=== PATIENT | female | born 1950 | race Caucasian/White ===

== ENCOUNTER 2018-06-02 14:28 | Outpatient (REF) | payer MEDICARE, SELFPAY ==
[2018-06-05 13:01] LABS: Lyme Ab w Rflx to Lyme Confirm Negative
[2018-06-06 01:37] LABS: Anaplasma phagocytophilum Negative (Negative); B. miyamotoi PCR Negative (Negative); Babesia divergens/MO-1 Negative (Negative); Babesia duncani Negative (Negative); Babesia microti Negative (Negative); Ehrlichia chaffeensis Negative (Negative); Ehrlichia ewingii/canis Negative (Negative); Ehrlichia muris eauclairensis Negative (Negative)
== END 2018-06-02 14:48 ==
LOC: NCHCN 14:28
PROVIDERS: PCP Family Medicine; Visit Provider Family Medicine
DX: R53.83 Other fatigue (principal); Z79.1 Long term (current) use of non-steroidal anti-inflammatories (NSAID)
CPT/HCPCS: 86618; 87798

== ENCOUNTER 2018-07-06 12:53 | Outpatient (REF) | payer MEDICARE, SELFPAY ==
[2018-07-06 21:52] LABS: Hemoglobin A1C 5.9 % (4.5-6.2)
[2018-07-06 22:09] LABS: Cholesterol 195 mg/dL (50-200); HDL Cholesterol 53 mg/dL (40-60); LDL CHOLESTEROL 138 mg/dL (<100); Triglyceride 50 mg/dL (30-150)
[2018-07-06 22:13] LABS: Vitamin B12 > 2000 pg/mL (193-986)
== END 2018-07-06 13:13 ==
LOC: NCHCN 12:53
PROVIDERS: PCP Family Medicine; Visit Provider Family Medicine
DX: E78.5 Hyperlipidemia, unspecified (principal); E03.9 Hypothyroidism, unspecified; R73.09 Other abnormal glucose; E53.8 Deficiency of other specified B group vitamins
CPT/HCPCS: 80061; 83721; 82607; 83036; 84443

== ENCOUNTER 2020-10-01 19:35 | Outpatient (REF) | payer MEDICARE, SELFPAY ==
[2020-10-01 22:16] LABS: TSH 0.59 uIU/mL (0.36-3.74)
== END 2020-10-01 19:55 ==
LOC: NCHCN 19:35
PROVIDERS: PCP Family Medicine; Visit Provider Internal Medicine
DX: E03.9 Hypothyroidism, unspecified (principal)
CPT/HCPCS: 84443

== ENCOUNTER 2021-12-03 20:22 | Outpatient (REF) | payer MEDICARE, OTHER, SELFPAY ==
[2021-12-03 21:38] LABS: Hemoglobin A1C 5.7 % (<5.7)
[2021-12-03 22:06] LABS: Vitamin D 25 Total 81.2 ng/mL (30-100)
[2021-12-03 22:19] LABS: Vitamin B12 > 2000 pg/mL (193-986)
== END 2021-12-03 20:23 | disposition home or self-care (01) ==
LOC: NCHCN 20:22
PROVIDERS: PCP Family Medicine; Visit Provider Family Medicine
DX: R73.03 Prediabetes (principal); E55.9 Vitamin D deficiency, unspecified
CPT/HCPCS: 82306; 82607; 83036

== ENCOUNTER 2021-12-07 12:30 | Outpatient (REF) | payer MEDICARE, OTHER, SELFPAY ==
--- OUTSIDE RECORDS SUMMARY | 2021-12-07 12:33 | XMS_ITS ---
:1950 Author Care Team Providers Name Role Phone DANO MAHMOOD MD Primary Care Provider [phone] [facility] OTHER [phone] EMERSON SOLANO [facility] OTHER [phone] Allergies Code Code System Name Reaction Severity Status Onset 421722 RxNorm Bactrim ? ? Active ? Cat Dander ? ? Active ? Shellfish ? ? Active ? Derived Medications Name Status Start Date Stop Date ? ? aspirin Active ? Not available takes every other day B Complex-Vitamin B12 tablet Completed ? 03/2020 Take 1 tablet every day by oral route. EpiPen 2-Dennis 0.3 mg/0.3 mL injection, auto-injector Active ? Not available Take by injection route. Eye Vitamin and Minerals Active ? Not palak ilable once daily Finacea Active ? Not available apply as needed Imitrex 100 mg tablet Active ? Not availa ble Take 1 tablet as needed by oral route. magnesium gluconate 27 mg magnesium (500 mg) tablet Active ? Not available Take 1 tablet in evening. meloxicam Completed ? 04/27/2018 meloxicam 15 mg tablet Completed ? 8 metformin 500 mg tablet Completed ? 01/30/20 20 Take 1 tablet every day by oral route. olopatadine 0.6 % nasal spray Completed ? Hayes by intranasal route. Probiotic Completed ? 09/25/2019 Synthroid 100 mcg tablet Active ? Not palak ilable Take 1 tablet every day by oral route. vitamin [id number] B1 1,000 mcg-100 mg/mL injection solution Ac tive ? Not available Take every month by injection route. Vitamin D Active ? Not available Xanax Completed ? 09/25/2019 ?? Doesage Problems Name Status Onset Date Source ? Psychophysiologic Insomnia Active 04/27/2018 ? Polyp of Colon Active ? History Hypothyroidism Active ? History Vitamin D Deficiency Active ? History Obstructive Sleep Apnea Syndrome Active ? History Seasonal Allergic Rhinitis Active ? Histo ry Neck Pain Active ? History Plantar Fascial Fibromatosis Active ? His tory Eruption Unknown ? History Prediabetes Active ? History Procedures Date Name Performed by ? 09/19/1955 Tonsillectomy Information not avai lable Results Lab Results None recorded. Past Encounters 04/20/2021 Obstructive Sleep Apnea Syndrome; Psycho physiologic Insomnia Julio Plunkett MD, Board Certified Sleep Ph ysician: [address] [place] [address] [address], [place] [address], Ph. 01/05/2021 Obstructive Sleep Apnea Syndrome; Psycho physiologic Insomnia Julio Plunkett MD, Board Certified Sleep Ph ysician: [address] [place] [address] [address], [place] [address], Ph. 10/01/2020 Obstructive Sleep Apnea Syndrome; Fatigu e; Cramp in Lower Limb Associated with Sleep; Psychophysiologic Insomnia Julio Plunkett MD, Board Certified Sleep Ph ysician: [address] [place] [address], Ph. 07/08/2020 Obstructive Sleep Apnea Syndrome; Fatigu e; Cramp in Lower Limb Associated with Sleep; Psychophysiologic Insomnia Julio Plunkett MD, Board Certified Sleep Ph ysician: [address] [place] [address], Ph. Social History Tobacco Smoking Status Never Smoker Vaccine List Vaccine Type Tdap 07/20/2015 Plan of Care Patient Instructions oral appliance sleep study suggests the 19 blue band works well for side sleep and has some residual respiratory events related sleep arousals in supine position sleep. However if you plan to use t his as a alternative therapy during adeel el, I think it is better to use the gentler position for your jaw to adjust easily. continue cpap therapy in meantime at aut o cpap 8 to 12cm. fortunately your machine is NOT recalled. you can also add mouth tape (somnifix mouth strips or the like) to see if it helps with reducing mouth opening/dry mouth carie when sleeping on your back. Continue High absorption magnesium 100mg 2 tabs daily; with muscle cramps, can increase further up to 2 tabs twice daily (~100% APPLICATIONS INTERN) 6 month follow up (~ Oct 2021) april 2021 follow up Continue using your oral appliance, alternating with cpap to rest your jaw. When you do use cpap, the auto cpap 8 to 12cm setting, which in the past was working fine to treat your sleep apnea. You are also using breath rite strips. Search [employer] or the internet to see if you get audio files for deep breathing exercises, meditation, guided imagery, progressive muscle relaxation for sleep. search binaural beats for sleep. [employer] all ows you to listen to samples of the sean os before purchasing so it may be a helpful option. You think your sleep has been variable. Your back injury has disrupted the sleep. Yet you continue to work on a healthy lifestyle, with frequent exercise and eating unprocessed foods and avoiding sugar. Keep this up and your sleep will contin ue to benefit from this. Keep up the good work with your lifestyl e choices. You are really doing excellent with this and even got off your diabetes medications with improved A1C. Keep up the good work. [employer] is a helpful get for you. You will be enrolling in a [place] sponsored intervention on prediabetes. Continue w/ your Vitamin D supplement an d B12 shots. Continue taking Magnesium. Try the high absoprtion form to see if that may work better, 1 to 2 tabs daily. Let's check in about 6 months. Reminders Provider Appointments None recorded. ? ? Lab None recorded. ? ? Referral None recorded. ? ? Procedures None recorded. ? ? Surgeries None recorded. ? ? Imaging None recorded. ? ? Vitals 04/20/2021 01:00PM Office 30 Height Weight BMI Blood Pressure 161.29 cm 58.97 kg 22.7 kg/m2 140/69 mm[Hg] 01/05/2021 10:30AM Office 30 Height Weight BMI 161.29 cm 56.25 kg 21.6 kg/m2 10/01/2020 11:00AM Office 30 Height Weight BMI 161.29 cm 55.52 kg 21.3 kg/m2 07/08/2020 11:30AM Office 30 Height Weight BMI Blood Pressure 161.29 cm 58.97 kg 22.7 kg/m2 119/49 mm[Hg] 01/30/2020 12:00PM Office 30 Height Weight BMI 161.29 cm 63.05 kg 24.2 kg/m2 09/25/2019 03:30PM Office 30 Height Weight BMI Blood Pressure 161.29 cm 68.49 kg 26.3 kg/m2 121/67 mm[Hg] 03/26/2019 11:00AM Office 30 Height Weight BMI Blood Pressure 161.29 cm 67.13 kg 25.8 kg/m2 130/73 mm[Hg] 09/26/2018 10:30AM Office 15 Height Weight BMI Blood Pressure 161.29 cm 68.49 kg 26.3 kg/m2 128/68 mm[Hg] 06/21/2018 09:30AM Office 15 Height Weight BMI Blood Pressure 161.29 cm 66.22 kg 25.5 kg/m2 116/67 mm[Hg] 04/27/2018 10:00AM New Patient 30 Height Weight BMI Blood Pressure 161.29 cm 69.4 kg 26.7 kg/m2 124/59 mm[Hg] 02/09/2018 10:30AM Office 15 Height Weight BMI Blood Pressure 161.29 cm 69.4 kg 26.7 kg/m2 112/60 mm[Hg] 11/08/2017 Height Weight Blood Pressure 161.29 cm 69.57 kg 120/60 mm[Hg]
--- OUTSIDE RECORDS SUMMARY | 2021-12-07 12:33 | XMS_ITS | CCD ---
:1950 Author Care Team Providers Name Role Phone MD ELA Attending Physician Unavailable Vital Signs Unknown or Not Available. Allergies Unknown or Not Available. Procedures Unknown or Not Available. History of Immunizations Unknown or Not Available. Problems Unknown or Not Available. Results COMPREHENSIVE METABOLIC PANEL (CMP) - Co llect Date/Time: 03/19/2021 10:06 Test Name Code Test Result Test Units Test Ref Range GLUCOSE 2345-7 98 mg/dL L=70 H=11 6 BUN 3094-0 12 mg/dL L=6 H=25 CREATININE 2160-0 0.90 mg/dL L=0.51 H=0.95 SODIUM SERUM 2951-2 140 mmol/L L=136 H=14 5 POTASSIUM SERUM 2823-3 5.0 mmol/L L=3.4 H =5.2 CHLORIDE SERUM 2075-0 103 mmol/L L=96 H= 110 CARBON DIOXIDE (CO2) 2028-9 31 mmol/L L=22 H=34 ANION GAP 30812-1 5.7 mmol/L CALCIUM SERUM 58668-5 9.3 mg/dL L=8.2 H=10.2 BILIRUBIN TOTAL 1975-2 0.6 mg/dL L=0.0 H =1.3 ALK. PHOS. 6768-6 84 U/L L=46 H=11 6 SGOT (AST) 1920-8 21 U/L L=15 H=37 SGPT (ALT) 1742-6 35 U/L L=12 H=78 TOTAL PROTEIN 2885-2 7.8 gm/dL L=6.0 H=8 .0 ALBUMIN 1751-7 4.2 gm/dL L=3.4 H=5. 0 AGE 70 years eGFR (non-Afr.Amer.) 13488-2 62 mL/min eGFR (Afr-Georgian) 97640-0 75 mL/min HEMOGLOBIN A1C - Collect Date/Time: 09/2020 10:06 Test Name Code Test Result Test Units Test Ref Range Hgb A1c 4548-4 5.6 % L=3.8 H=5. 7 MEAN BLOOD GLUCOSE 82019-3 100 mg/dL Active Medications Unknown or Not Available. Medications Administered During Visit Unknown or Not Available. Encounters Encounter Diagnosis Diagnosis Code Start Date Prediabetes [id number] 03/19/2021 Social History Smoking Status Code Start Date End Date Never smoker [id number] Patient Decision Aids Unknown or Not Available. Discharge Instructions You were admitted to [facility] on 03/19/2021 09:59 with a principal diagnosis of Prediabetes You had the following tests done: COMPREHENSIVE METABOLIC PANEL (CMP) HEMOGLOBIN A1C You were discharged from [facility] on 03/19/2021 09:59 Should you have any questions prior to d ischarge, please contact a member of your healthcare team. If you have left the ho spital and have any questions, please contact your primary care physician. Chief Complaint and Reason For Visit Unknown or Not Available. Function Status Unknown or Not Available. Plan of Care Unknown or Not Available. Referral/Transition of Care Unknown or Not Available.
--- OUTSIDE RECORDS SUMMARY | 2021-12-07 12:33 | XMS_ITS ---
:1950 Author Care Team Providers Name Role Phone DR. DANO MAHMOOD Primary Care Provider [phone] DR. DANO MAHMOOD Referring Provider [phone] Allergies Code Code System Name Reaction Severity Status Onset 981467 RxNorm Bactrim ? ? Active ? 2670 RxNorm Codeine ? ? Active ? 4053 RxNorm Erythromycin Base ? ? Active ? Septra ? ? Active ? Shellfish Derived Anaphylaxis ? Active ? Medications Name Status Start Date Stop Date ? ? chlorpheniramine 4 mg tablet Active ? Not available Take 1 tablet every 4-6 hours by oral route as needed. cholecalciferol (vitamin D3) Active ? Not available Alternate 2,000 and 3,000 IU daily Finacea 15 % topical gel Active ? Not palak ilable APPLY A THIN LAYER TO THE AFFECTED AREA(S) BY TOPICAL ROUTE [place] magnesium Active ? Not available 500 mg magnesium oxide 500 mg tablet Completed ? Take 1 tablet every day by oral route. Pepcid Completed ? 05/12/2020 Taking 1 tablet everyday Pepcid AC 20 mg tablet Active ? Not avail able Take 1 tablet every day by oral route. Synthroid 100 mcg tablet Active ? Not palak ilable Take 1 tablet every day by oral route. vit D3-folic [id number] Completed 05/31/201805/21 Notes: Iontophoresis with dexame thasone UAD Problems Name Status Onset Date Source ? Mitral Valve Prolapse Active 05/31/2018 ? Rosacea Active 05/31/2018 ? Sleep Apnea Active 05/31/2018 ? Complication of Anesthesia Active 05/31/2018 ? Polyp of Colon Active ? ? Hypothyroidism Active ? ? Cobalamin Deficiency Active ? ? Vitamin D Deficiency Active ? ? Hyperlipidemia Active ? ? Overweight Active ? ? Obstructive Sleep Apnea Syndrome Active ? ? Gastroesophageal Reflux Disease without Active ? ? Esophagitis Seborrheic Dermatitis of Scalp Active ? ? Joint Pain Active ? ? Chronic Neck Pain Active ? ? Plantar Fasciitis Active ? ? Muscle Pain Active ? ? Osteopenia Active ? ? Fatigue Active ? ? Prediabetes Active ? ? Bilateral Thumb Pain Active ? ? Pain in Right Knee Active ? ? Procedures Date Name Performed by ? ? Egd Information not avai lable ? Colonoscopy Information not avai lable ? Breast Biopsy Information not avai lable Notes: right ? Neck Spine Disk Surgery Information not available ? Tonsillectomy Information not avai lable ? Eye Surgery Information not avai lable Notes: x2 as child ?right eye Results Lab Results Date Name Specimen Result Interpretation Description Value Range Status Address ? 06/11/2020 Urease, Normal Clotest negative negative [facility] Qualitative, Hosp ital Tissue Laboratory & Pathology: [address] [place] [address] 06/06/2020 SARS CoV 2 ? Upper nasopharynge ? [facility] RNA Respiratory al Hospi [facility] (COVID-19), Source Labor atory QL, supervisor customer services-PCR, & Respiratory Patho logy: Specimen [address] [place] [address] ? ? Normal Sars Cov-2 not detected not [facility] RNA detected [facility] (Covid-19) Labora tory & Pathology: [address] [place] [address] 08/14/2018 H Pylori Urea ? H. Pylori negative negativ e [facility] Breath Test, Breath Test [facility] Co2 Infrared Labo ratory & Pathology: [address] [place] [address] 06/14/2018 Urease, ABNORMAL Nilda Test markedly ? [facility] Qualitative, positive Ho spital Tissue Laboratory & Pathology: [address] [place] [address] Past Encounters None recorded. Social History Tobacco Smoking Status Never Smoker Vaccine List None recorded. Plan of Care Reminders Provider Appointments None ? ? recorded. Lab None ? ? recorded. Referral None ? ? recorded. Procedures None ? ? recorded. Surgeries None ? ? recorded. Imaging None ? ? recorded. Vitals Height Weight BMI Blood Pressure 161.29 cm 58.06 kg 22.3 kg/m2 110/74 mm[Hg]
--- OUTSIDE RECORDS SUMMARY | 2021-12-07 12:33 | XMS_ITS | CCD ---
:1950 Author Care Team Providers Name Role Phone NIDA Attending Physician Unavailable Vital Signs Unknown or Not Available. Allergies Unknown or Not Available. Procedures Unknown or Not Available. History of Immunizations Unknown or Not Available. Problems Unknown or Not Available. Results C REACTIVE PROTEIN HIGH SENSITIVITY - Co llect Date/Time: 04/20/2021 09:25 Test Name Code Test Result Test Units Test Ref Range CRP-HIGH SENS. 29752-4 1.73 mg/L L=0.00 H= 3.00 CRP-HIGH SENS 69585-7 0.17 mg/dL L=0.00 H=0 .30 COMPREHENSIVE METABOLIC PANEL (CMP) - Co llect Date/Time: 04/20/2021 09:25 Test Name Code Test Result Test Units Test Ref Range GLUCOSE 2345-7 97 mg/dL L=70 H=11 6 BUN 3094-0 16 mg/dL L=6 H=25 CREATININE 2160-0 0.85 mg/dL L=0.51 H=0.95 SODIUM SERUM 2951-2 140 mmol/L L=136 H=14 5 POTASSIUM SERUM 2823-3 4.1 mmol/L L=3.4 H =5.2 CHLORIDE SERUM 2075-0 104 mmol/L L=96 H= 110 CARBON DIOXIDE (CO2) 2028-9 31 mmol/L L=22 H=34 ANION GAP 75482-7 5.0 mmol/L CALCIUM SERUM 32661-2 8.7 mg/dL L=8.2 H=10.2 BILIRUBIN TOTAL 1975-2 0.5 mg/dL L=0.0 H =1.3 ALK. PHOS. 6768-6 74 U/L L=46 H=11 6 SGOT (AST) 1920-8 16 U/L L=15 H=37 SGPT (ALT) 1742-6 28 U/L L=12 H=78 TOTAL PROTEIN 2885-2 7.5 gm/dL L=6.0 H=8 .0 ALBUMIN 1751-7 4.0 gm/dL L=3.4 H=5. 0 AGE 70 years eGFR (non-Afr.Amer.) 91803-6 66 mL/min eGFR (Afr-Luxembourger) 07383-4 80 mL/min TSH THYROID STIMULATING HORMONE - [facility] Date/Time: 04/20/2021 09:25 Test Name Code Test Result Test Units Test Ref Range TSH 3014-8 0.695 uIU/mL L=0.360 H=3. 740 CBC W/ DIFFERENTIAL - Collect Date/Time: 04/20/2021 09:25 Test Name Code Test Result Test Units Test Ref Range WBC 6690-2 5.23 th/cmm L=5.00 H=10.00 NEUT % 66.0 % L=40.0 H=80.0 LYMPH % 23.5 % L=10.0 H=50.0 MONO % 35010-2 7.8 % L=2.0 H=12.0 EOS % 1.5 % L=0.0 H=8. 0 BASO % 1.0 % L=0.0 H=3. 0 IG % 2514-8 0.2 % L=0.0 H=1. 1 NRBC % 10364-9 0.0 % L=0.0 H=0. 0 NEUT abs count 751-8 3.5 th/cmm L=1.6 H= 8.4 LYMPH abs count 731-0 1.2 th/cmm L=1.5 H =4.0 MONO abs count 742-7 0.4 th/cmm L=0.2 H= 1.0 EOS abs count 711-2 0.1 th/cmm L=0.0 H=0 .5 BASO abs count 704-7 0.1 th/cmm L=0.0 H= 0.2 IG abs count 06891-4 0.0 th/cmm L=0.0 H=0. 1 NRBC abs count 88552-0 0.0 mil/cmm L=0.0 H= 0.0 RBC 789-8 4.69 mil/cmm L=3.90 H=5.40 HEMOGLOBIN 718-7 13.5 gm/dL L=12.0 H=16.0 HEMATOCRIT 4544-3 42 % L=37 H=47 MCV 787-2 89 fL L=82 H=92 MCH 785-6 28.8 pg L=27.0 H=31.0 MCHC 786-4 32.5 % L=32.0 H=36.0 RDW-SD 788-0 45.8 fL L=39.0 H=49.0 PLATELET COUNT 777-3 287 th/cmm L=150 H= 450 SED RATE - Collect Date/Time: 04/20/2021 09:25 Test Name Code Test Result Test Units Test Ref Range SED. RATE 4537-7 1 mm/hr L=0 H=30 Active Medications Unknown or Not Available. Medications Administered During Visit Unknown or Not Available. Encounters Encounter Diagnosis Diagnosis Code Start Date Other fatigue [id number] 04/20/2021 Social History Smoking Status Code Start Date End Date Never smoker [id number] Patient Decision Aids Unknown or Not Available. Discharge Instructions You were admitted to [facility] on 04/20/2021 08:39 with a principal diagnosis of Other fatigue You had the following tests done: C REACTIVE PROTEIN HIGH SENSITIVITY CBC W/ DIFFERENTIAL COMPREHENSIVE METABOLIC PANEL (CMP) SED RATE TSH THYROID S TIMULATING HORMONE You were discharged from [facility] on 04/20/2021 08:39 Should you have any questions prior to [...]
[2021-12-09 14:17] LABS: Helicobacter pylori Ag, Feces Negative (Negative)
== END 2021-12-07 12:31 | disposition home or self-care (01) ==
LOC: NCHCN 12:30
PROVIDERS: PCP Family Medicine; Visit Provider Family Medicine
DX: K21.9 Gastro-esophageal reflux disease without esophagitis (principal); R10.9 Unspecified abdominal pain
CPT/HCPCS: 87338; 83630

== ENCOUNTER 2023-01-07 00:52 | Outpatient (CLI) | payer MEDICARE, SELFPAY ==
--- NOTE | 2023-01-07 | DI.RAD_ITS ---
Exam(s) XR KNEE LT 3V AP,LAT,PAYTON EXAM: XR KNEE LT 3V AP,LAT,PAYTON CLINICAL HISTORY: ILIOTIBIAL BAND FRICTION LT KNEE M76.32 OSTEOARTHRITIS LEFT KNEE M17.9. TECHNIQUE: 2D digital imaging was performed. COMPARISON: No exams were available for comparison FINDINGS: 3 views No evidence of acute fracture but there is a joint effusion noted which may signify an internal deran gement. Mild degenerative changes noted in all 3 compartments. No prominent joint space narrowing. No osteo phytes. No osteochondral defects. No osseous lesions. IMPRESSION: Mild degenerative tricompartmental changes. Joint effusion noted. DATA REPOSITORY: RADIATION DOSE DELIVERED:
--- NOTE | 2023-01-07 | DI.RAD_ITS ---
Exam(s) XR HIP LT COMPLETE AP PELVIS EXAM: XR HIP LT COMPLETE AP PELVIS CLINICAL HISTORY: LEFT HIP PAIN M25.552. TECHNIQUE: 2D digital imaging was performed. COMPARISON: No exams were available for comparison FINDINGS: 3 views No evidence of hip fractures. No hip joint space narrowing. Additional images of the left hip revea l no osteophytes nor bony excrescence. Incidentally noted is a deformity of the lateral aspect of the left iliac crest which may be developm ental or possibly related to donor site. Sacroiliac joints appear unremarkable. IMPRESSION: As above. DATA REPOSITORY: RADIATION DOSE DELIVERED:
== END 2023-01-07 01:12 ==
LOC: DI 00:53
PROVIDERS: PCP Family Medicine; Visit Provider Internal Medicine
DX: M25.552 Pain in left hip (principal)
CPT/HCPCS: 73562; 73502

== ENCOUNTER → 2023-07-18 12:53 | Outpatient (BNVA) | payer MEDICARE, SELFPAY | PROVIDERS: PCP Family Medicine; Referring Provider Family Medicine; Visit Provider Student in an Organized Health Care Education/Training Program | DX: M17.12 Unilateral primary osteoarthritis, left knee (principal) | CPT/HCPCS: 99203 ==

== ENCOUNTER 2023-07-18 15:44 | Outpatient (REF) | payer MEDICARE, SELFPAY ==
--- NOTE | 2023-07-18 12:00 | SKI_PTH ---
PATIENT: Stella Iglesias [id number] AGE/SX: 72/F ROOM: RE07/18/[address]: Bethany Palmer : 1950 BED: DIS: 07/18/2023 SPEC #: [id number] RECD: 07/18/23 17:48 STATUS: FREDRICK WEEKS #: [id number] LAKHWINDER: 07/18/23 12:[address]: Bethany Palmer DEPT: Surgical Specimen RECD BY: Rachell Bartlett Tissues: 1 - SKIN BIOPSY(SHAVE/PUNCH) Procedures: SKIN LEVEL 4 Comments: [id number]
[2023-07-18 16:58] LABS: Anion Gap 9.7 mmol/L (3-11); BUN 11 mg/dL (7-18); CO2 27.3 mmol/L (21.0-32.0); CREATININE 0.9 mg/dL (0.55-1.02); Calcium 9.6 mg/dL (8.5-10.1); Chloride 102 mmol/L (98-107); Estimated GFR 67.92 (mL/min/1.73m2); Glucose 106 mg/dL (74-106); Potassium 4.9 mmol/L (3.5-5.1); Sodium 139 mmol/L (136-145)
[2023-07-18 16:59] LABS: Vitamin D 25 Total 60.1 ng/mL (30-100)
== END 2023-07-18 15:45 | disposition home or self-care (01) ==
LOC: NCHCN 15:44
PROVIDERS: PCP Family Medicine; Visit Provider Family Medicine
DX: E55.9 Vitamin D deficiency, unspecified (principal); E87.1 Hypo-osmolality and hyponatremia; L82.1 Other seborrheic keratosis
CPT/HCPCS: 80048; 82306; 88305

== ENCOUNTER 2024-03-15 02:59 | Outpatient (CLI) | payer MEDICARE, SELFPAY ==
--- NOTE | 2024-03-19 10:22 | W.NUTRFU ---
Date of service: 03/15/24 Time of Service: 13:00 Nutrition Note NOTE: Pinky comes in for a nutrition visit - referred for MNT for HLD and also has weight management as a goal. Her weight at her visit with PCP was 146lbs. She reports current weight of 142lbs and has a goal weight of 130-135 set. Gave example of breakfast she has started eating of oats and quinoa soaked overnight in almond milk and adds walnuts, banana, berries. Another breakfast option might be 1 egg with spinach, toast with butter. I applauded any changes she has made to help with her weight mgt goals and supported a plant-based, minimally-processed diet with lots of traditional plant foods. We discussed goals for lowering TGL's and LDL cholesterol by choosing foods more commonly known to lower these and also avoiding foods that will impact negatively. Foods to eat more often (3-7 times per week): Beans, beets, berries, greens, oats, nuts/seeds, garlic/onion family, non-starchy veggies. We also discussed getting to know her added sugar intake and making adjustments so it is <30g per day. We reviewed some sample menus for meal set-ups and went over snacks as a way to get little more fiber and protein in the diet with smart pairings of food like nuts with carrots and hummus. Sent Pinky an email summary of what we discussed with some supporting resources. She will be in contact if she desires follow up or needs more guidance with menu planning. Time Spent in Nutritional Counseling and Treatment: 30
--- NOTE | 2024-04-27 11:20 | W.NUTRFU ---
Date of service: 04/27/24 Time of Service: 10:00 Nutrition Note NOTE: Pinky in for follow up on diet changes towards her goal to improve lipid profile with hx of HLD. She feels like she is good on breakfast meal which is consistently oats and quinoa with walnuts blueberries and soy milk. She feels life often gets in the way of her food choices and makes it hard to plan. She ate some wonderful brown bread with coffee for some time after getting a real high quality loaf from [employer] and also relates splurges on things like maple kettle corn. She also relates having friends over for dinner in a few nights and not sure what to make so they are happy and she is not eating things she Shouldn't. She is interested in delivery meal plans or types that send you the ingredients with recipes to be made at home as she feels this will help with decision making - shared a few that might be congruent with her goals. Pinky seems to be doing well most days on her added sugar intake. Reports small weight loss since last appt but trying not to focus on this as only goal. I reviewed some easier lunches and snack ideas that are just whole foods that are paired up together to make a meal - finger food veggies and dip, some triscuit crackers and and small handful of raw nuts/pumkin seeds for example. Pinky will try to keep working on menus and being proactive with eating but knows life will make it difficult on some days and try to take it with a grain of salt - just don't let one meal or snack that isn't up to par ruin the next - get back into proactive mode as soon as elise. Will remain available for follow up. Time Spent in Nutritional Counseling and Treatment: 30 min
== END 2024-03-15 03:00 | disposition home or self-care (01) ==
LOC: DS 03:00
PROVIDERS: PCP Family Medicine; Visit Provider Dietitian, Registered
DX: E78.5 Hyperlipidemia, unspecified (principal); E66.3 Overweight; Z71.3 Dietary counseling and surveillance
CPT/HCPCS: 00123; 97802

== ENCOUNTER 2024-06-05 20:21 | Outpatient (REF) | payer MEDICARE, SELFPAY ==
[2024-06-05 21:30] LABS: ESR 8 mm/hr (0-30)
[2024-06-05 21:47] LABS: Iron 27 ug/dL (50-170); Total Iron Binding Capacity 321 ug/dL (250-450)
[2024-06-05 22:03] LABS: Ferritin 135 ng/mL (8-252); TSH (W/Ref FT4) 1.85 uIU/mL (0.36-3.74)
[2024-06-05 22:16] LABS: Hemoglobin A1C 5.8 % (<5.7)
== END 2024-06-05 20:22 | disposition home or self-care (01) ==
LOC: NCHCN 20:21
PROVIDERS: PCP Family Medicine; Visit Provider Family Medicine
DX: L29.3 Anogenital pruritus, unspecified (principal); R73.03 Prediabetes; E03.9 Hypothyroidism, unspecified
CPT/HCPCS: 85652; 82728; 83036; 83540; 83550; 84443; 87480; 87510; 87660

== ENCOUNTER 2024-11-23 09:36 | Observation (INO) | payer MEDICARE, SELFPAY ==
[2024-11-23] VITALS (37 sets, daily range): BP systolic 127–202; BP diastolic 54–81; PULSE 58–76; RESP 10–24; TEMP 36.6–37.2; O2SAT 94–100
--- NOTE | 2024-11-23 | DI.MRI_ITS ---
Exam(s) MR BRAIN WO EXAM: MR BRAIN WO CLINICAL HISTORY: stroke TECHNIQUE: Multiplanar multisequence MRI of the brain was performed. COMPARISON: CT CT BRAIN NECK CTA from 11/23/2024 FINDINGS: CEREBRAL PARENCHYMA: There is no evidence of intracranial hemorrhage, mass effect, or shift of midline structures. There are no extra-axial fluid collections. Ventricles are not enlarged or shifted. There is no significant focal signal abnormality in the cerebellar hemispheres nor within the lexie, m idbrain, and thalami. There are multiple bilateral small foci periventricular white matter signal abnormality. Largest of these is in the left parietal lobe and measures 1.3 x 0.9 cm, not associated with hemorrhage, surroun ding edema, not associated with restricted diffusion at this level nor elsewhere in the brain. There is no significant focal signal abnormality evident on diffusion imaging to suggest acute ischem ic event. PITUITARY GLAND: No mass nor parasellar abnormality. No obvious abnormality in the cavernous sinuses. FLOW VOIDS: The expected flow void are noted. No evidence of obvious aneurysm nor obvious vascular ma lformation. PARANASAL SINUSES: The visualized paranasal sinuses appear unremarkable. No obvious finding ORBITS: No obvious findings. IMPRESSION: There are few FLAIR bright foci of periventricular signal abnormality, the largest being in the left parietal lobe and measuring 13 x 9 mm, having nonspecific appearance. There is no associated hemorrh age, surrounding edema, nor restricted diffusion at this level (nor elsewhere in the brain). No evid ence of acute infarct, as per request. Report called by myself to ER provider 11/23/2024 at 1:30 p.m. DATA REPOSITORY:
--- NOTE | 2024-11-23 09:30 | RT.EKG_ITS ---
APPROVED REPORT Exam: Resting ECG Reason for Exam: Headache, slurred speech Patient Location: E HR:69 bpm ECG Measurements Heart Rate 69 AXIS HI 139 P 61 QRSd 97 QRS 32 QT 388 T 50 QTc 416 Conclusion Sinus rhythm...normal P axis, V-rate 60- 99 I have reviewed and interpreted ECG and agree with software generated interpretation.
--- NOTE | 2024-11-23 09:45 | DI.CT_ITS ---
Exam(s) CT HEAD WO EXAM: CT HEAD WO CLINICAL HISTORY: code stroke. TECHNIQUE: Imaging Protocol: Axial computed tomography images with coronal and sagittal reformatted images were created and reviewed COMPARISON: No exams were available for comparison FINDINGS: There are no skull fractures. There is no fluid in the visualized paranasal sinuses. There is no evidence of intracranial hemorrhage, mass effect, or shift of midline structures. There are no extra-axial fluid collections. The ventricles are not enlarged or shifted and there is no blo od within the ventricular system nor within the basal cisterns. IMPRESSION: No acute intracranial findings on this noninfused CT scan of the brain. Called by myself to ER 11/23/2024 at 10:04. am RADIATION DOSE DELIVERED: 901.17mGy.cm Total DLP DATA REPOSITORY: All CT scans at this facility are submitted to the National Radiology Data Registry (NRDR) Dose Index Registry (DIR) with the [employer] (ACR). RADIATION OPTIMIZATION: All CT scans at this facility use at least one of these dose optimization te chniques: automated exposure control; mA and/or kV adjustment per patient size (includes targeted exa ms where dose is matched to clinical indication); or iterative reconstruction.
[2024-11-23 09:59] LABS: Abs Immature Grans 0.03 10^3/uL (0.0-0.06); Absolute Basophil Count 0.05 10^3/uL (0.0-0.2); Absolute Eosinophil Count 0.04 10^3/uL (0.0-0.7); Absolute Lymphocyte Count 1.11 10^3/uL (1.2-3.4); Absolute Monocyte Count 0.42 10^3/uL (0.1-0.8); Absolute Neutrophil Count 3.81 10^3/uL (1.2-6.7); Basophils % 0.9 %; Eosinophils % 0.7 %; HCT 40.6 % (36.0-46.0); HGB 13.3 g/dL (11.2-15.7); Immature Grans % 0.5 %; Lymphocytes % 20.3 %; MCH 28.3 pg (27.0-33.0); MCHC 32.8 % (32.0-36.0); MCV 86 fL (80-95); MPV 10.3 fL (8.0-11.0); Monocytes % 7.7 %; Neutrophils % 69.9 %; Platelet Count 276 10^3/uL (130-400); RDW 14.7 % (11.7-14.6); RDW-SD 46.8 fL; WBC 5.46 10^3/uL (4.4-10.8)
[2024-11-23 10:13] LABS: PTT Activated 27.3 sec (20.6-30.2); Prothrombin Time 10.3 sec (9.1-11.1)
--- NOTE | 2024-11-23 10:15 | DI.CT_ITS ---
Exam(s) CT BRAIN NECK CTA EXAM: CT BRAIN NECK CTA CLINICAL HISTORY: speech difficulty 0800. TECHNIQUE: Imaging Protocol: Axial CT angiography was performed with multi-slice acquisition and mu lti-planar and/or 3D reconstructions. CONTRAST MATERIAL: Intravenous: Omnipaque 350 Contrast volume:70 mL COMPARISON: CT CT HEAD WO from 11/23/2024 FINDINGS: CTA Neck W: Aortic arch anatomy: The aortic arch anatomy is conventional and there is no significant stenosis at the origin of the great vessels off of the aortic arch. No intimal flap evident. Anterior circulation: Both common carotid arteries ascend with normal luminal diameters. There is no significant plaque at the level the carotid bifurcations and proximal internal carotid ar teries. No stenosis at these levels. The internal carotid arteries in both sides the upper neck are also patent as well as within the skull base-carotid canals. Posterior circulation: Both vertebral arteries originate in conventional fashion off of the subclavian arteries and there is no obvious stenosis at the origin of the vertebral arteries. Both vertebral arteries exhibit normal luminal diameters within the foramen transversarium. Both vertebral arteries contribute to the formation of the basilar artery at the skull base. CTA Brain W: Anterior circulation: Both internal carotid arteries are patent in the skull base-carotid canals as well as within the cave rnous sinuses. The supraclinoid aspects of the ICAs are patent. Both A1 segments are patent as are the anterior cer ebral arteries and there is no evidence of aneurysm at the level of the anterior communicating artery . Both middle cerebral arteries are patent with no evidence of significant stenosis nor intraluminal th rombus. There also no aneurysms of these vessels. Posterior circulation: The basilar artery ascends in the midline. Distally it gives off patent bilateral superior cerebella r arteries. Above this level the basilar artery terminates as patent bilateral posterior cerebral arteries. Post erior cerebral artery appears unremarkable. There is splitting of the P1 segment of the right cruise consultant ior cerebral artery starting 4 mm distal to the origin of this vessel. This is probably developmenta l. There is no evidence of aneurysm at the tip of the basilar artery nor elsewhere in the [id number] is. CT BRAIN: There is no evidence of intracranial hemorrhage, mass effect, or shift of midline structures. There are no extra-axial fluid collections. Ventricles are not enlarged or shifted. There are no ring enh ancing lesions in the brain and no abnormal meningeal enhancement. IMPRESSION: 1. Patent carotid arteries in the neck. No hemodynamically significant stenosis. No dissection 2. Patent vertebral arteries. No significant stenosis. No dissection. 3. Patent intracranial arteries. 4. No acute intracranial findings. No ring enhancing lesions in the brain. Abnormal meningeal enhan cement. Recommend follow-up MRI with diffusion imaging if clinically indicated. Report called to ER provider 11/23/2024 at 11:42 a.m. RADIATION DOSE DELIVERED: 1,283.82mGy.cm Total DLP DATA REPOSITORY: All CT scans at this facility are submitted to the National Radiology Data Registry (NRDR) Dose Index Registry (DIR) with the [employer] (ACR). RADIATION OPTIMIZATION: All CT scans at this facility use at least one of these dose optimization te chniques: automated exposure control; mA and/or kV adjustment per patient size (includes targeted exa ms where dose is matched to clinical indication); or iterative reconstruction.
[2024-11-23 10:22] LABS: ALT 26 U/L (14-59); AST 18 U/L (15-37); Albumin 3.9 g/dL (3.4-5.0); Alkaline Phosphatase 93 U/L (46-116); Anion Gap 5.5 mmol/L (3-11); BUN 15 mg/dL (7-18); Bilirubin, Total 0.4 mg/dL (0.2-1.0); CO2 29.5 mmol/L (21.0-32.0); CREATININE 0.9 mg/dL (0.55-1.02); Chloride 105 mmol/L (98-107); Estimated GFR 67.08 (mL/min/1.73m2); Glucose 100 mg/dL (74-106); Potassium 4.1 mmol/L (3.5-5.1); Sodium 140 mmol/L (136-145); Total Protein 7.2 g/dL (6.4-8.2); Troponin I 4 ng/L (<or=51)
[2024-11-23] MEDS: diphenhydrAMINE 50 MG/ML VIAL 25 MG IVP (10:37)
[2024-11-23] MEDS: methylPREDNISolone SUCC 125 MG VIAL IVP (10:38)
[2024-11-23] MEDS: Normal Saline - Diluent 50 ML VIAL IJ (11:09)
[2024-11-23] MEDS: Omnipaque 350 MG/ML 100 ML BTL IJ (11:11)
[2024-11-23 11:18] LABS: Troponin I 4 ng/L (<or=51)
--- NOTE | 2024-11-23 12:14 | W.ED.GENAD ---
Discharge Plan Disposition Patient Disposition: Admit to [facility] Condition: Stable Discharge Details Chief Complaint: CVA/TIA Clinical Impression: Transient ischemic attack Admit Date/Time: 11/23/24 12:21 Admit Provider: Darrick Reynoso Attending Provider: Darrick Reynoso Primary Care Provider: Bethany Palmer ED Provider: Sotero Sims HPI General Date/Time Provider Initiated Documentation: 11/23/24 09:44. HPI Narrative: 74 year-old female presents to ED today by POV/ambulating with her friend with a chief complaint of onset of word-finding difficulty around 0800 today, with a headache, both have resolved. Quality described as just was difficult to find the words, no radiation to slurred speech, motor difficulty, numbness, tingling, endorses vague visual changes but cannot characterize. Severity is described as mild. Palliating factors include nothing specific attempted. Provoking factors include nothing specific. Events leading up to the incident/Associated Symptoms: Patient states she has had one episode of similar onset in the remote past. Patient not anticoagulated. Related Data Home Medications ?Medication ?Instructions ?Recorded ?Confirmed cholecalciferol (vitamin D3) 50 50 mcg PO DAILY 07/18/23 11/23/24 mcg (2,000 unit) capsule epinephrine 0.3 mg/0.3 mL 0.3 mg IM ONCE 07/18/23 11/23/24 injection, auto-injector levothyroxine 100 mcg tablet 100 mcg PO DAILY 07/18/23 11/23/24 (Synthroid) magnesium gluconate 27 mg 27 mg PO DAILY 07/18/23 11/23/24 magnesium (500 mg) tablet sumatriptan succinate 50 mg tablet See Rx Instructions PO .COMPLEX 07/18/23 11/23/24 azelaic acid 15 % topical foam 1 applic topical BID 01/10/24 11/23/24 (Finacea) azelastine 137 mcg (0.1 %) nasal 2 spray intranasal BID 01/10/24 11/23/24 spray magnesium gluconate 27.5 mg 27.5 mg PO DAILY 01/10/24 11/23/24 magnesium (500 mg) tablet methocarbamol 750 mg tablet 750 - 1,500 mg PO Q8H 01/10/24 11/23/24 omeprazole 40 mg capsule,delayed 40 mg PO DAILY 01/10/24 11/23/24 release acetaminophen 500 mg capsule 500 mg PO Q6H PRN 01/25/24 11/23/24 Allergies Allergy/AdvReac Type Severity Reaction Status Date / Time shellfish derived Allergy Unknown Anaphylaxis Unverified 01/25/24 17:03 sulfamethoxazole (From Allergy Anaphylaxis Verified 01/25/24 17:03 Bactrim) trimethoprim (From Bactrim) Allergy Anaphylaxis Unverified 01/25/24 17:03 General Stated Complaint: CVA/TIA DAYAN: 2 Review of Systems All systems reviewed & are unremarkable except as noted in HPI and below Exam Narrative Exam Narrative: GENERAL APPEARANCE: Well-nourished, non-toxic, awake and alert, atraumatic, no acute distress. SKIN: Warm, pink, dry, intact, without rashes/lesions/ulcerations. HEAD: Normocephalic, atraumatic, normal hair distribution for gender/age. EYES: Normal conjunctiva, no exudates on lids/lashes. ENT: Nares patent, no circumoral cyanosis, no facial swelling NECK: Supple, trachea midline, painless cervical ROM. LUNGS/CHEST: Lungs CTA bilaterally, non-labored respirations, normal A/P diameter, symmetrical expansion, no chest wall deformity HEART (CV/PV): Regular rate and rhythm without murmur, no peripheral edema, no JVD. ABDOMEN: Soft, non-distended, no guarding. MSK: Normal ROM, no swelling/deformity to bilateral UEs or LEs, moving all extremities without weakness, no cyanosis, spine midline without tenderness, normal curvature. NEURO: Mental Status AAOx4 - alert to person, place, time, events No facial droop, no forehead involvement, no dysmetria with cerebellar testing in upper or lower extremities Motor: No focal weakness - strength 5/5 in bilateral UEs and LEs, proximal and distal, symmetric. Sensory: sensation intact to light touch globally. Gait normal: patient ambulated without ataxia into ED room. NIH 0 PSYCH: euthymic, cooperative, pleasant, appropriate speech Course Vital Signs Vital signs: Vital Signs Temperature 36.8 C 11/23/24 09:41 Pulse 71 11/23/24 09:41 Respiratory Rate 16 11/23/24 09:41 Blood Pressure 188/59 H 11/23/24 09:41 Pulse Oximetry 98 11/23/24 09:41 Temperature 36.8 C 11/23/24 09:41 Temperature Source Temporal Artery Scan 11/23/24 09:41 Pulse 63 11/23/24 11:37 Pulse 63 11/23/24 11:37 Respiratory Rate 19 11/23/24 11:37 Respiratory Effort Normal 11/23/24 10:55 Respiratory Depth Normal 11/23/24 10:55 Respiratory Pattern Normal 11/23/24 10:55 Blood Pressure 194/81 H 11/23/24 11:37 Blood Pressure Mean 123 11/23/24 11:37 Blood Pressure Position Sitting 11/23/24 09:41 Pulse Oximetry 99 11/23/24 11:30 Oxygen Delivery Method Room Air 11/23/24 09:41 Oxygen Flow Rate 0 11/23/24 09:41 Pain Level 4 11/23/24 09:41 Lab/Test Results Lab/Test Results: Laboratory Tests Range/Units 11/23/24 11/23/24 09:54 10:51 WBC (4.4-10.8) 10^3/uL 5.46 RBC (3.93-5.22) 10^6/uL 4.70 Hgb (11.2-15.7) g/dL 13.3 Hct (36.0-46.0) % 40.6 MCV (80-95) fL 86 MCH (27.0-33.0) pg 28.3 MCHC (32.0-36.0) % 32.8 RDW (11.7-14.6) % 14.7 H Plt Count (130-400) 10^3/uL 276 MPV (8.0-11.0) fL 10.3 Immature Gran % % 0.5 Neutrophils % % 69.9 Lymphocytes % % 20.3 Monocytes % % 7.7 Eosinophils % % 0.7 Basophils % % 0.9 Nucleated RBC % (0.0-0.3) % 0.0 Absolute Neutrophils (1.2-6.7) 10^3/uL 3.81 Absolute Lymphocytes (1.2-3.4) 10^3/uL 1.11 L Absolute Monocytes (0.1-0.8) 10^3/uL 0.42 Absolute Eosinophils (0.0-0.7) 10^3/uL 0.04 Absolute Basophils (0.0-0.2) 10^3/uL 0.05 PT (9.1-11.1) sec 10.3 INR (0.9-1.1) 1.0 APTT (20.6-30.2) sec 27.3 Sodium (136-145) mmol/L 140 Potassium (3.5-5.1) mmol/L 4.1 Chloride (98-107) mmol/L 105 Carbon Dioxide (21.0-32.0) mmol/L 29.5 Anion Gap (3-11) mmol/L 5.5 BUN (7-18) mg/dL 15 Creatinine (0.55-1.02) mg/dL 0.9 Est GFR (CKD-EPI 2020) (mL/min/1.73m2) 67.08 Glucose (74-106) mg/dL 100 Calcium (8.5-10.1) mg/dL 9.0 Total Bilirubin (0.2-1.0) mg/dL 0.4 AST (15-37) U/L 18 ALT (14-59) U/L 26 Alkaline Phosphatase (46-116) U/L 93 Troponin I (<or=51) ng/L 4 4 Total Protein (6.4-8.2) g/dL 7.2 Albumin (3.4-5.0) g/dL 3.9 Medical Decision Making This dictation utilizes [id number] dictation software and may contain unedited grammatical errors. 74 year-old female presents to ED today by POV/ambulating with her friend with a chief complaint of onset of word-finding difficulty around 0800 today, with a headache, both have resolved. Quality described as just was difficult to find the words, no radiation to slurred speech, motor difficulty, numbness, tingling, endorses vague visual changes but cannot characterize. Severity is described as mild. Palliating factors include nothing specific attempted. Provoking factors include nothing specific. Events leading up to the incident/Associated Symptoms: Patient states she has had one episode of similar onset in the remote past. Patients' medical history: GERD, chronic rhinitis, psychophysiologic insomnia, hyperlipidemia, prediabetes. Family and social history: Lives a healthy lifestyle, lives independently, no recent travel or sick contacts. Pertinent exam findings / vital signs include benign cardiopulmonary exam, neuro intact with an NIH of 0, benign abdomen, nontoxic. Differential / pathologies of concern include TIA, CVA, dementia. Diagnostic studies of: -CT head without, CTA brain and neck, EKG, basic laboratory workup. -CBC is unremarkable -CT MP is unremarkable -Coagulation studies benign -CT head shows no acute intracranial hemorrhage, CTA of the brain and neck shows no acute findings. -MRI does show some FLAIR in the left parietal lobe, not likely acute stroke Interventions of: -Telemetry neuroconsult, teleneurologist from [facility] recommends admission for TIA. 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 Alberto and radiologist Dr. Robledo, we considered MRI but the delay in getting study performed was too great. I did discuss with imaging assembly department supervisor, reassured that she is unlikely to have a reaction to iodinated contrast due to her shellfish allergy, the patient is unsure, states the last time she had contrast she got very sick. I did premedicate her with methylprednisolone and Benadryl,. Findings not consistent with CVA, significant occlusive stroke, encephalopathy, current altered mentation. Disposition of Transient Ischemic Attack. Patient verbalized understanding of the plan and return to ED criteria and engaged in shared decision making. Medical Records Medical records reviewed: Yes I reviewed the patient's medical records. Imaging Data Radiologic Study: Attestation: I personally reviewed and interpreted this imaging study as follows: Imaging: CT Scan Radiologist's impression: EXAM: CT HEAD WO CLINICAL HISTORY: code stroke. TECHNIQUE: Imaging Protocol: Axial computed tomography images with coronal and sagittal reformatted images were created and reviewed COMPARISON: No exams were available for comparison FINDINGS: There are no skull fractures. There is no fluid in the visualized paranasal sinuses. There is no evidence of intracranial hemorrhage, mass effect, or shift of midline structures. There are no extra-axial fluid collections. The ventricles are not enlarged or shifted and there is no blood within the ventricular system nor within the basal cisterns. IMPRESSION: No acute intracranial findings on this noninfused CT scan of the brain. Called by myself to ER 11/23/2024 at 10:04. am Radiologic Study #2: Attestation: I personally reviewed and interpreted this imaging study as follows: Imaging: CT Scan Radiologist's impression: EXAM: CT BRAIN NECK CTA CLINICAL HISTORY: speech difficulty 0800. TECHNIQUE: Imaging Protocol: Axial CT angiography was performed with multi-slice acquisition and multi-planar and/or 3D reconstructions. CONTRAST MATERIAL: Intravenous: Omnipaque 350 Contrast volume:70 mL COMPARISON: CT CT HEAD WO from 11/23/2024 FINDINGS: CTA Neck W: Aortic arch anatomy: The aortic arch anatomy is conventional and there is no significant stenosis at the origin of the great vessels off of the aortic arch. No intimal flap evident. Anterior circulation: Both common carotid arteries ascend with normal luminal diameters. There is no significant plaque at the level the carotid bifurcations and proximal internal carotid arteries. No stenosis at these levels. The internal carotid arteries in both sides the upper neck are also patent as well as within the skull base-carotid canals. Posterior circulation: Both vertebral arteries originate in conventional fashion off of the subclavian arteries and there is no obvious stenosis at the origin of the vertebral arteries. Both vertebral arteries exhibit normal luminal diameters within the foramen transversarium. Both vertebral arteries contribute to the formation of the basilar artery at the skull base. CTA Brain W: Anterior circulation: Both internal carotid arteries are patent in the skull base-carotid canals as well as within the cavernous sinuses. The supraclinoid aspects of the ICAs are patent. Both A1 segments are patent as are the anterior cerebral arteries and there is no evidence of aneurysm at the level of the anterior communicating artery. Both middle cerebral arteries are patent with no evidence of significant stenosis nor intraluminal thrombus. There also no aneurysms of these vessels. Posterior circulation: The basilar artery ascends in the midline. Distally it gives off patent bilateral superior cerebellar arteries. Above this level the basilar artery terminates as patent bilateral posterior cerebral arteries. Posterior cerebral artery appears unremarkable. There is splitting of the P1 segment of the right posterior cerebral artery starting 4 mm distal to the origin of this vessel. This is probably developmental. There is no evidence of aneurysm at the tip of the basilar artery nor elsewhere in the [id number]. CT BRAIN: There is no evidence of intracranial hemorrhage, mass effect, or shift of midline structures. There are no extra-axial fluid collections. Ventricles are not enlarged or shifted. There are no ring enhancing lesions in the brain and no abnormal meningeal enhancement. IMPRESSION: 1. Patent carotid arteries in the neck. No hemodynamically significant stenosis. No dissection 2. Patent vertebral arteries. No significant stenosis. No dissection. 3. Patent intracranial arteries. 4. No acute intracranial findings. No ring enhancing lesions in the brain. Abnormal meningeal enhancement. Recommend follow-up MRI with diffusion imaging if clinically indicated. Radiologic Study #3: Attestation: I personally reviewed and interpreted this imaging study as follows: Imaging: MRI Radiologist's impression: EXAM: MR BRAIN WO CLINICAL HISTORY: stroke TECHNIQUE: Multiplanar multisequence MRI of the brain was performed. COMPARISON: CT CT BRAIN NECK CTA from 11/23/2024 FINDINGS: CEREBRAL PARENCHYMA: There is no evidence of intracranial hemorrhage, mass effect, or shift of midline structures. There are no extra-axial fluid collections. Ventricles are not enlarged or shifted. There is no significant focal signal abnormality in the cerebellar hemispheres nor within the lexie, midbrain, and thalami. There are multiple bilateral small foci periventricular white matter signal abnormality. Largest of these is in the left parietal lobe and measures 1.3 x 0.9 cm, not associated with hemorrhage, surrounding edema, not associated with restricted diffusion at this level nor elsewhere in the brain. There is no significant focal signal abnormality evident on diffusion imaging to suggest acute ischemic event. PITUITARY GLAND: No mass nor parasellar abnormality. No obvious abnormality in the cavernous sinuses. FLOW VOIDS: The expected flow void are noted. No evidence of obvious aneurysm nor obvious vascular malformation. PARANASAL SINUSES: The visualized paranasal sinuses appear unremarkable. No obvious finding ORBITS: No obvious findings. IMPRESSION: There are few FLAIR bright foci of periventricular signal abnormality, the largest being in the left parietal lobe and measuring 13 x 9 mm, having nonspecific appearance. There is no associated hemorrhage, surrounding edema, nor restricted diffusion at this level (nor elsewhere in the brain). No evidence of acute infarct, as per request. Report called by myself to ER provider 11/23/2024 at 1:30 p.m. Lab Data Lab results reviewed: Yes I reviewed the patient's lab results. Labs: Laboratory Tests Range/Units 11/23/24 11/23/24 09:54 10:51 WBC (4.4-10.8) 10^3/uL 5.46 RBC (3.93-5.22) 10^6/uL 4.70 Hgb (11.2-15.7) g/dL 13.3 Hct (36.0-46.0) % 40.6 MCV (80-95) fL 86 MCH (27.0-33.0) pg 28.3 MCHC (32.0-36.0) % 32.8 RDW (11.7-14.6) % 14.7 H Plt Count (130-400) 10^3/uL 276 MPV (8.0-11.0) fL 10.3 Immature Gran % % 0.5 Neutrophils % % 69.9 Lymphocytes % % 20.3 Monocytes % % 7.7 Eosinophils % % 0.7 Basophils % % 0.9 Nucleated RBC % (0.0-0.3) % 0.0 Absolute Neutrophils (1.2-6.7) 10^3/uL 3.81 Absolute Lymphocytes (1.2-3.4) 10^3/uL 1.11 L Absolute Monocytes (0.1-0.8) 10^3/uL 0.42 Absolute Eosinophils (0.0-0.7) 10^3/uL 0.04 Absolute Basophils (0.0-0.2) 10^3/uL 0.05 PT (9.1-11.1) sec 10.3 INR (0.9-1.1) 1.0 APTT (20.6-30.2) sec 27.3 Sodium (136-145) mmol/L 140 Potassium (3.5-5.1) mmol/L 4.1 Chloride (98-107) mmol/L 105 Carbon Dioxide (21.0-32.0) mmol/L 29.5 Anion Gap (3-11) mmol/L 5.5 BUN (7-18) mg/dL 15 Creatinine (0.55-1.02) mg/dL 0.9 Est GFR (CKD-EPI 2020) (mL/min/1.73m2) 67.08 Glucose (74-106) mg/dL 100 Hemoglobin A1c (<5.7) % 5.9 H Calcium (8.5-10.1) mg/dL 9.0 Total Bilirubin (0.2-1.0) mg/dL 0.4 AST (15-37) U/L 18 ALT (14-59) U/L 26 Alkaline Phosphatase (46-116) U/L 93 Troponin I (<or=51) ng/L 4 4 Total Protein (6.4-8.2) g/dL 7.2 Albumin (3.4-5.0) g/dL 3.9 Triglycerides (<150) mg/dL 39 Total Cholesterol (<200) mg/dL 219 H LDL Cholesterol, Calc (<100) mg/dL 138 H HDL Cholesterol (>or=50) mg/dL 74 H Quality:SDOH Health Related Social Needs: Health related social needs inadequate housing (Z59.1) PFSH All Active Problems (Updated 11/23/24 @ 15:55 by NORMA Agrawal) Transient ischemic attack (Acute) Hypothyroidism (Chronic) TIA (transient ischemic attack) (Acute) Cervical radiculitis (Acute) Osteoarthritis of left knee (Acute) Medical History ILENE (obstructive sleep apnea) Prediabetes Hyperlipidemia Psychophysiologic insomnia Dysphagia Hypothyroidism Osteoarthritis Mass of anterior abdominal wall Low back pain GERD (gastroesophageal reflux disease) Foot pain Osteopenia Abdominal pain Epigastric pain Disorder of soft tissue Cervical disc disorder with radiculopathy Neck pain Shoulder pain Vasomotor rhinitis Chronic rhinitis Social History Smoking/Tobacco Use Status: Never Smoking risk assessment performed?: Yes Alcohol Intake: never Drug use: Never Substance use type: does not use Housing: house Do you feel safe at home: Yes Do you feel safe in your relationship?: Yes
--- NOTE | 2024-11-23 12:45 | DI.US_ITS ---
APPROVED REPORT EXAM: Comprehensive 2D, Doppler, and color-flow Echocardiogram Patient Location: In-Patient Pearl Peller: Jcarlos Schneider RDCS (AE) Indications: Stroke Other Information Study Quality: Adequate Conclusion Normal left ventricular wall thickness and chamber size. Ejection fraction is 60%. Wall motion is n ormal Normal right ventricular size and function Both atria are normal in size There are no structural valvular abnormalities Mild mitral and tricuspid regurgitation Wall motion Left Ventricle The left ventricle is normal size. Left ventricular systolic function is normal. The left ventricular ejection fraction is within the normal range. There is normal left ventricular wall thickness. There is normal LV segmental wall motion. The left ventricular diastolic function is normal. There is no v entricular septal defect visualized. LVEF is 60%. Right Ventricle The right ventricle is normal size. The right ventricular systolic function is normal. Atria The left atrium size is normal. The right atrium size is normal. The interatrial septum is intact wit h no evidence for an atrial septal defect. Aortic Valve The aortic valve is normal in structure. Aortic valve is trileaflet. There is no aortic valvular sten osis. No aortic regurgitation is present. Mitral Valve The mitral valve is normal in structure. No evidence of mitral valve stenosis. Mild mitral regurgitat ion. Tricuspid Valve The tricuspid valve is normal in structure. There is no tricuspid valve stenosis. Mild tricuspid regu rgitation. Pulmonic Valve The pulmonary valve is normal in structure. There is no pulmonic valvular stenosis. Trace to mild pul maxx regurgitation. Great Vessels The aortic root is normal in size. The ascending aorta is borderline dilated. Aortic arch is not well visualized. IVC is normal in size and collapses >50% with inspiration. Pericardium There is no pericardial effusion. 2D Dimensions IVSD d PLAX 0.82 cm F: 0.6-1.0 Ao Root d 2.61 cm F: 2.7 - 3.3 LVPW d PLAX 0.83 cm F: 0.6 - 1.0 Ao Asc Diam d 3.32 cm F: 2.3 - 3.1 LVID d PLAX 4.90 cm F: 3.8 - 5.2 LVDs 3.32 cm F: 2.2 - 3.5 LV EF Teichholz 60.3 % FS 32.24 % LV EDV (Teich) 112.8 mL LV ESV (Teich) 44.8 mL Stroke Vol Index (Teich) 40.00 M-Mode TAPSE 2.47 cm (M/F) >1.7 Auto EF LV EDV A4C 76.1 mL LV EDV A2C 82.0 mL LV EDV BP 78.2 mL LV ESV A4C 30.7 mL LV ESV A2C 32.6 mL LV ESV BP 31.8 mL LVEF(%) A4C 59.6 % LVEF(%) A2C 60.3 % LVEF(%) BP 59.4 % LV SV A4C 45.4 ml LV SV A2C 49.5 ml LV SV BP 46.4 ml LV CO A4C 2.6 L/min LV CO A2C 2.4 L/min LV CO BP 2.5 L/min HR A4C 56.43 BPM HR A2C 48.65 BPM LV EDV Index (BP) LA Volume LA Length A4C 4.2 cm LA Length A2C 4.0 cm LA Area A4C s 9.02 cm2 LA Area A2C s 11.13 cm2 LA Vol A4C A-L 16.47 mL LA Vol A2C A-L 26.29 mL LA Vol Biplane A-L 21.3 mL LA Vol/BSA A4C A-L LA Vol/BSA A2C A-L LA Vol/BSA BP A-L 12.5 mL/m2 LA Vol A4C MOD 15.8 mL LA Vol A2C MOD 25.0 mL LA Vol BP MOD 20.3 mL RA Volume RA Area A4C 6.6 cm2 RA ESV A4C (A-L) 11.0mL RA Vol/BSA A4C A-L RA Length A4C 3.3 cm RA ESV A4C (MOD) 10.0mL LV Diastology MV E' medial 0.084 (>0.07 m/s) MV E Vmax 0.92 (0.4-1.3 m/s) MV E/E' MED 11.06 (<14) MV A Vmax 1.10 (0.4-1.3 m/s) MV E' lateral 0.120 (>0.1 m/s) E/A Ratio 0.8 MV E/E' LAT 7.73 (<14) MV E' Average 0.102 m/s MV E/E'(average) 9.10 Aortic Valve AoV Vmax 1.50 m/s LVOT Vmax 1.13 m/s AoV Peak Grad 8.9 mmHg LVOT Peak Grad 5.1 mmHg AoV Area (Vmax) 1.85 cm2 LVOT VTI 0.278 m AoV VTI 0.385 m LVOT Mean Grad 2.8 mmHg AoV Mean Godfrey. 1.02 m/s LVOT SV 67.90 mL AoV Mean Grad 4.8 mmHg LVOT Diam s 1.75 cm AoV Area (VTI) 1.76 cm2 AV Regurg Peak Gr. 8.94 mmHg Velocity Ratio 0.75 Mitral Valve MV DT 198 (160-240 msec) MV Vmax TIPS 1.11 m/s MV Mean Grad 1.9 (<2mmHg) MV VTI 0.455 m Pulmonary Valve PV Vmax 0.88 (0.5-1.5 m/s) RVOT Vmax 0.74 m/s PV Peak Grad 3.1 mmHg RVOT Peak Gr. 2.2 mmHg PV Mean Godfrey 0.61 m/s RVOT VTI 0.175 m PV Mean Grad 1.7 mmHg RVOT Mean Gr. 1.1 mmHg Tricuspid Valve RA Pressure 3.00 mmHg TR Vmax 4.02 m/s TR Peak Grad 64.7 mmHg RVSP (TR) 67.8 mmHg
[2024-11-23 12:58] LABS: Calculated LDL 138 mg/dL (<100); Cholesterol 219 mg/dL (<200); HDL Cholesterol 74 mg/dL (>or=50); Triglyceride 39 mg/dL (<150)
[2024-11-23 13:03] LABS: Hemoglobin A1C 5.9 % (<5.7)
--- NOTE | 2024-11-23 13:04 | W.PC.ACHO ---
Registration Status: Primary Language: Preferred Language: ED Information & Data Chief Complaint CVA/TIA 11/23/24 12:16 Triage Note pt woke up normal, around 11/23/24 09:41 8am developed left sided headache and was mixing up her words. She knew what she wanted to say but it was all mixed up. Unsure how long that episode lasted, called PCP who referred her here. Medical / Surgical History (Last Reviewed 01/25/24 @ 17:07 by Catie Magaña RN) ILENE (obstructive sleep apnea) Prediabetes Hyperlipidemia Psychophysiologic insomnia Dysphagia Hypothyroidism Osteoarthritis Mass of anterior abdominal wall Low back pain GERD (gastroesophageal reflux disease) Foot pain Osteopenia Abdominal pain Epigastric pain Disorder of soft tissue Cervical disc disorder with radiculopathy Neck pain Shoulder pain Vasomotor rhinitis Chronic rhinitis Most Recent Vital Signs Temperature 36.8 C 11/23/24 09:41 Temperature Source Temporal Artery Scan 11/23/24 09:41 Pulse 68 11/23/24 12:47 Pulse 70 11/23/24 12:40 Respiratory Rate 18 11/23/24 12:40 Respiratory Effort Normal 11/23/24 10:55 Respiratory Depth Normal 11/23/24 10:55 Respiratory Pattern Normal 11/23/24 10:55 Blood Pressure 161/76 H 11/23/24 12:47 Blood Pressure Mean 106 11/23/24 12:47 Blood Pressure Position Sitting 11/23/24 09:41 Pulse Oximetry 99 11/23/24 12:40 Oxygen Delivery Method Room Air 11/23/24 12:29 Oxygen Flow Rate 0 11/23/24 12:29 Pain Level 4 11/23/24 09:41 Allergies shellfish derived Allergy (Unknown, Unverified 01/25/24 17:03) Anaphylaxis sulfamethoxazole (From Bactrim) Allergy (Verified 01/25/24 17:03) Anaphylaxis trimethoprim (From Bactrim) Allergy (Unverified 01/25/24 17:03) Anaphylaxis Active Medications Generic Name Dose Route Start Last Admin Trade Name Freq PRN Reason Stop Dose Admin Iohexol 100 ml 11/23/24 11:15 11/23/24 11:11 Omnipaque 350 Mg/Ml 100 Ml Btl IJ 12/23/24 23:59 100 ml DIRECTED ROBERT Administration Sodium Chloride 50 ml 11/23/24 11:15 11/23/24 11:09 Normal Saline - Diluent 50 Ml Vial IJ 50 ml .FOR DI USE ROBERT Administration IV IV Catheter Type [Left Saline Lock Antecubital] IV Catheter Gauge [Left 18 Antecubital] Diagnostics 11/23/24 11/23/24 Range/Units 10:51 09:54 WBC 5.46 (4.4-10.8) 10^3/uL RBC 4.70 (3.93-5.22) 10^6/uL Hgb 13.3 (11.2-15.7) g/dL Hct 40.6 (36.0-46.0) % MCV 86 (80-95) fL MCH 28.3 (27.0-33.0) pg MCHC 32.8 (32.0-36.0) % RDW 14.7 H (11.7-14.6) % Plt Count 276 (130-400) 10^3/uL MPV 10.3 (8.0-11.0) fL Immature Gran % 0.5 % Neutrophils % 69.9 % Lymphocytes % 20.3 % Monocytes % 7.7 % Eosinophils % 0.7 % Basophils % 0.9 % Nucleated RBC % 0.0 (0.0-0.3) % Absolute Neutrophils 3.81 (1.2-6.7) 10^3/uL Absolute Lymphocytes 1.11 L (1.2-3.4) 10^3/uL Absolute Monocytes 0.42 (0.1-0.8) 10^3/uL Absolute Eosinophils 0.04 (0.0-0.7) 10^3/uL Absolute Basophils 0.05 (0.0-0.2) 10^3/uL PT 10.3 (9.1-11.1) sec INR 1.0 (0.9-1.1) APTT 27.3 (20.6-30.2) sec Sodium 140 (136-145) mmol/L Potassium 4.1 (3.5-5.1) mmol/L Chloride 105 (98-107) mmol/L Carbon Dioxide 29.5 (21.0-32.0) mmol/L Anion Gap 5.5 (3-11) mmol/L BUN 15 (7-18) mg/dL Creatinine 0.9 (0.55-1.02) mg/dL Est GFR (CKD-EPI 2020) 67.08 (mL/min/1.73m2) Glucose 100 (74-106) mg/dL Hemoglobin A1c Pending Calcium 9.0 (8.5-10.1) mg/dL Total Bilirubin 0.4 (0.2-1.0) mg/dL AST 18 (15-37) U/L ALT 26 (14-59) U/L Alkaline Phosphatase 93 (46-116) U/L Troponin I 4 4 (<or=51) ng/L Total Protein 7.2 (6.4-8.2) g/dL Albumin 3.9 (3.4-5.0) g/dL Triglycerides 39 (<150) mg/dL Total Cholesterol 219 H (<200) mg/dL LDL Cholesterol, Calc 138 H (<100) mg/dL HDL Cholesterol 74 H (>or=50) mg/dL [id number] Documentation Fingerstick Glucose Start: 11/23/24 09:54 Freq: Status: Active Protocol: Activity Type Activity Date Activity User E-sign Co-sign Detail Recorded Client Recorded Date Recorded By Document 11/23/24 09:53 BKG DAEMON(3) [id number] 11/23/24 09:54 BKG DAEMON(4) Intake and Output - 24 Hour Total 11/23/24 09:36 thru 11/23/24 09:41 Weight 65.317 kg Falls Risk Assessment History of Falls No History 11/23/24 10:55 Contributing Factors No Factors 11/23/24 10:55 Ambulatory Aids Independent 11/23/24 10:55 Tubes/Lines None 11/23/24 10:55 Fall Total Score 0 11/23/24 10:55 Level of Risk Standard/Low Risk 11/23/24 10:55 v v v v v v v v v Sending and/or Receiving Nurses: Please use comment section below to note any information pertinent to the patient hand-off not included above. Information / Comments: Pt will arrive to 230 from ED. Report received from: CHANTE Sanchez RN
--- NOTE | 2024-11-23 13:45 | DI.US_ITS ---
Exam(s) US CAROTID EXAM: US CAROTID CLINICAL HISTORY: stroke. TECHNIQUE: Ultrasound carotids performed using grayscale, color-flow, and spectral Doppler imaging. COMPARISON: No exams were available for comparison FINDINGS: RIGHT CAROTID ARTERY: Plaque: No visible plaque Velocity elevation: None. LEFT CAROTID ARTERY: Plaque: No visible plaque Velocity elevation: None. VERTEBRAL ARTERIES: Antegrade flow. IMPRESSION: No visible plaque. No evidence for hemodynamically significant carotid stenosis. Criteria for Carotid Stenosis: Normal: ICA PSV <125 cm/s no plaque or intimal thickening is visible. <50% stenosis: ICA PSV <125 cm/s and plaque or intimal thickening is visible. 50-69% stenosis: ICA PSV is 125-250 cm/s and plaque is visible. >70% stenosis to near occlusion: ICA PSV >250 cm/s with visible plaque and luminal narrowing. DATA REPOSITORY:
--- NOTE | 2024-11-23 15:23 | HPE_ITS ---
Date of service: 11/23/24 Time of Service: 15:24 Assessment and Plan Assessment and plan (1) TIA (transient ischemic attack): Status: Acute Assessment and plan: Referred to observation on the medical surgical unit On telemetry Brain MRI pending, echocardiogram, carotid ultrasound Lipids, A1c, TSH Neuro monitoring (2) Hypothyroidism: Status: Chronic Assessment and plan: check tsh continue levothyroxine discussed with DR Reynoso History of Present Illness Narrative: This is a 74-year-old female patient who presented to the emergency department today for word finding difficulty that occurred approximately 8 AM. She did report a headache at the time. No visual disturbance. No abdominal pain nausea or vomiting. Both of those symptoms are resolved by the time she was evaluated in the emergency department. Her neurologic exam was unremarkable. She did undergo a CT of the head in addition to her routine stroke workup. She was seen by telemetry neurology with recommendations for admission here under observation to complete stroke workup. Hospitalist services has been contacted. Hemodynamically she has remained stable. No evidence of an infection. Review of Systems All systems reviewed & are unremarkable except as noted in HPI and below PFSH All Active Problems (Updated 11/23/24 @ 15:55 by NORMA Agrawal) Transient ischemic attack (Acute) Hypothyroidism (Chronic) TIA (transient ischemic attack) (Acute) Cervical radiculitis (Acute) Osteoarthritis of left knee (Acute) Medical History ILENE (obstructive sleep apnea) Prediabetes Hyperlipidemia Psychophysiologic insomnia Dysphagia Hypothyroidism Osteoarthritis Mass of anterior abdominal wall Low back pain GERD (gastroesophageal reflux disease) Foot pain Osteopenia Abdominal pain Epigastric pain Disorder of soft tissue Cervical disc disorder with radiculopathy Neck pain Shoulder pain Vasomotor rhinitis Chronic rhinitis Social History Smoking/Tobacco Use Status: Never Smoking risk assessment performed?: Yes Alcohol Intake: never Drug use: Never Substance use type: does not use Housing: house Do you feel safe at home: Yes Do you feel safe in your relationship?: Yes Meds Allergies and Home Medications Allergies Allergy/AdvReac Type Severity Reaction Status Date / Time shellfish derived Allergy Unknown Anaphylaxis Unverified 01/25/24 17:03 sulfamethoxazole (From Allergy Anaphylaxis Verified 01/25/24 17:03 Bactrim) trimethoprim (From Bactrim) Allergy Anaphylaxis Unverified 01/25/24 17:03 Home Medications ?Medication ?Instructions ?Recorded ?Confirmed ?Type cholecalciferol (vitamin D3) 50 50 mcg PO DAILY 07/18/23 11/23/24 History mcg (2,000 unit) capsule epinephrine 0.3 mg/0.3 mL 0.3 mg IM ONCE 07/18/23 11/23/24 History injection, auto-injector levothyroxine 100 mcg tablet 100 mcg PO DAILY 07/18/23 11/23/24 History (Synthroid) magnesium gluconate 27 mg 27 mg PO DAILY 07/18/23 11/23/24 History magnesium (500 mg) tablet sumatriptan succinate 50 mg tablet See Rx Instructions PO .COMPLEX 07/18/23 11/23/24 History azelaic acid 15 % topical foam 1 applic topical BID 01/10/24 11/23/24 History (Finacea) azelastine 137 mcg (0.1 %) nasal 2 spray intranasal BID 01/10/24 11/23/24 History spray magnesium gluconate 27.5 mg 27.5 mg PO DAILY 01/10/24 11/23/24 History magnesium (500 mg) tablet methocarbamol 750 mg tablet 750 - 1,500 mg PO Q8H 01/10/24 11/23/24 History omeprazole 40 mg capsule,delayed 40 mg PO DAILY 01/10/24 11/23/24 History release acetaminophen 500 mg capsule 500 mg PO Q6H PRN 01/25/24 11/23/24 History Exam Narrative Exam Narrative: Well-appearing female of stated age no acute distress head is atraumatic eyes nonicteric noninjected EOMs are intact no nystagmus cranial nerves II through XII grossly intact [id number] with no ataxia bilaterally strength 5 out of 5 bilaterally upper and lower extremities cardiovascular regular rate and rhythm respirations even nonlabored abdomen benign extremities without edema psychiatric appropriate mood and affect Results Labs 11/23/24 09:54 11/23/24 09:54 Labs: Laboratory Results - last 24 hr 11/23/24 11/23/24 09:54 10:51 WBC 5.46 RBC 4.70 Hgb 13.3 Hct 40.6 MCV 86 MCH 28.3 MCHC 32.8 RDW 14.7 H Plt Count 276 MPV 10.3 Immature Gran % 0.5 Neutrophils % 69.9 Lymphocytes % 20.3 Monocytes % 7.7 Eosinophils % 0.7 Basophils % 0.9 Nucleated RBC % 0.0 Absolute Neutrophils 3.81 Absolute Lymphocytes 1.11 L Absolute Monocytes 0.42 Absolute Eosinophils 0.04 Absolute Basophils 0.05 PT 10.3 INR 1.0 APTT 27.3 Sodium 140 Potassium 4.1 Chloride 105 Carbon Dioxide 29.5 Anion Gap 5.5 BUN 15 Creatinine 0.9 Est GFR (CKD-EPI 2020) 67.08 Glucose 100 Hemoglobin A1c 5.9 H Calcium 9.0 Total Bilirubin 0.4 AST 18 ALT 26 Alkaline Phosphatase 93 Troponin I 4 4 Total Protein 7.2 Albumin 3.9 Triglycerides 39 Total Cholesterol 219 H LDL Cholesterol, Calc 138 H HDL Cholesterol 74 H Last Vital Signs Temp 37.2 C 11/23/24 14:49 Pulse 65 11/23/24 14:49 Resp 16 11/23/24 14:49 BP 158/64 H 11/23/24 14:49 Pulse Ox 98 11/23/24 14:49 Time Spent Time spent with Patient: 55-74 minutes Time was spent: preparing to see the patient(eg.review tests), obtaining and/or reviewing separately otained hiistory, ordering medications,tests, procedures, referring, communicating with other health rn intensive care unit, indepentently interpreting results and counseling the patient
[2024-11-23 16:12] LABS: TSH (W/Ref FT4) 2.09 uIU/mL (0.36-3.74)
--- NOTE | 2024-11-23 16:15 | INITIAL_ITS ---
Date of service: 11/23/24 Time of Service: 16:15 Care Management Initial Assmt Initial Assessment Reason for Hospitalization: TIA, Hypoparathyroidism Functional Status/Living Situation Patient Presentation: Patient was discharged prior to meeting with CM. Information is per chart review. Town of Residence: [facility] Resides with: Alone Employment Status: Retired Instrumental Activities of Daily Living (ADLs): Independent Medications Medication Management: No Issues/Barriers identified Physical Functioning/Mobility Assistive Device: None Advance Directives Advance Directives: Do you have an Advance Directive: N 04/01/23 16:45 AD On File at [facility]: N 04/01/23 16:45 Date Asked 11/23/24 11/23/24 10:09 AD Date Reviewed COLST On File at [facility] COLST Date Scanned Code Status Resuscitation Status Full Code Portal Pt does not currently have a portal and education provided: Yes Insurance Coverage/Financial Issues Insurance: [employer] Senior Supplemental Ins Medicare Part A & B Care Team Visit Care Team Role Provider Type Bethany Palmer Primary Care Provider NON-[facility] STAFF PH YSICIAN NORMA Agrawal Emergency Provider [facility] [facility] Darrick Reynoso MD Admit Provider [facility] STAFF PHYSICIAN Attending Provider Discharge Potential Discharge Needs: PCP F/U Appt and Other (Outpatient MRI with contrast. See discharge summary) Anticipated Barriers to Discharge: None Identified Patient/Family Education Needs: Review discharge instructions, discuss Ask Me Three Transportation: Private vehicle Plan: Stella will discharge home via private vehicle with friend when medically ready for discharge. Pt will follow up with her PCP and discharge plan of care as directed. No orders for new services will are indicated at this time. CM will follow. Social Determinants of Health Screening Social Determinants of Health last assessed: 11/24/24 Will the Patient Participate in the Screening?: Yes Do you worry about having a steady place to live?: no Problems where you live: mold and water leaks In the past 12 months, have you had to go without electric, gas, oil or water in your home?: no Have you or anyone in your house had to go without enough food to eat?: no Has lack of transportation kept you from medical appointments or from doing things needed for daily living?: no Has anyone in your life made you feel unsafe or unsupported?: no How hard is it for you to pay for the very basics like food, housing, medical care, and heating? Would you say it is:: Not hard at all Do you want help finding or keeping work or a job?: I do not need or want help If for any reason you need help with day-to-day activities such as bathing, preparing meals, shopping, managing finances, etc., do you get the help you need?: I don?t need any help How often do you feel lonely or isolated from those around you?: Never Do you speak a language other than French at home?: No Does the patient want assistance with any of the above?: No Health Related Social Needs Health related social needs: inadequate housing (Z59.1) PFSH All Active Problems (Updated 11/23/24 @ 15:55 by NORMA Agrawal) Transient ischemic attack (Acute) Hypothyroidism (Chronic) TIA (transient ischemic attack) (Acute) Cervical radiculitis (Acute) Osteoarthritis of left knee (Acute) Medical History ILENE (obstructive sleep apnea) Prediabetes Hyperlipidemia Psychophysiologic insomnia Dysphagia Hypothyroidism Osteoarthritis Mass of anterior abdominal wall Low back pain GERD (gastroesophageal reflux disease) Foot pain Osteopenia Abdominal pain Epigastric pain Disorder of soft tissue Cervical disc disorder with radiculopathy Neck pain Shoulder pain Vasomotor rhinitis Chronic rhinitis Social History Smoking/Tobacco Use Status: Never Smoking risk assessment performed?: Yes Alcohol Intake: never Drug use: Never Substance use type: does not use Housing: house Do you feel safe at home: Yes Do you feel safe in your relationship?: Yes
[2024-11-24] MEDS: Aspirin 325 MG TAB PO (00:35)
[2024-11-24 04:23] VITALS: BP 105/53; PULSE 56; RESP 16; TEMP 36.5; O2SAT 95
[2024-11-24 06:47] LABS: ESR 5 mm/hr (0-30)
[2024-11-24 07:02] LABS: C-Reactive Protein < 0.50 mg/dL (<or=0.5)
[2024-11-24 08:07] VITALS: BP 152/70; PULSE 67; RESP 16; TEMP 36.8; O2SAT 97
[2024-11-24] MEDS: Aspirin 81 MG CHEW PO (08:16)
--- NOTE | 2024-11-24 08:25 | RESPIRATORY ---
Spoke with patient about ILENE diagnosis and pt advised she has a home CPAP machine but not here with her. RT let patient know if she ends up staying another night we are happy to help coordinate getting someone to bring her home machine in for her.
--- NOTE | 2024-11-24 09:30 | W.PM.PROGNOT ---
Date of Service Date of service: 11/24/24 Time of Service: 09:30 Assessment and Plan Assessment and plan (1) TIA (transient ischemic attack): Status: Acute Assessment and plan: Referred to observation on the medical surgical unit On telemetry Brain MRI pending, echocardiogram, carotid ultrasound Lipids, A1c, TSH Neuro monitoring (2) Hypothyroidism: Status: Chronic Assessment and plan: check tsh continue levothyroxine discussed with DR Reynoso Objective Last Vital Signs Temp 36.8 C 11/24/24 08:07 Pulse 67 11/24/24 08:07 Resp 16 11/24/24 08:07 BP 152/70 H 11/24/24 08:07 Pulse Ox 97 11/24/24 08:07 Laboratory Results - last 24 hr 11/23/24 11/23/24 11/23/24 09:54 10:51 10:54 WBC 5.46 RBC 4.70 Hgb 13.3 Hct 40.6 MCV 86 MCH 28.3 MCHC 32.8 RDW 14.7 H Plt Count 276 MPV 10.3 Immature Gran % 0.5 Neutrophils % 69.9 Lymphocytes % 20.3 Monocytes % 7.7 Eosinophils % 0.7 Basophils % 0.9 Nucleated RBC % 0.0 Absolute Neutrophils 3.81 Absolute Lymphocytes 1.11 L Absolute Monocytes 0.42 Absolute Eosinophils 0.04 Absolute Basophils 0.05 ESR PT 10.3 INR 1.0 APTT 27.3 Sodium 140 Potassium 4.1 Chloride 105 Carbon Dioxide 29.5 Anion Gap 5.5 BUN 15 Creatinine 0.9 Est GFR (CKD-EPI 2020) 67.08 Glucose 100 Hemoglobin A1c 5.9 H Calcium 9.0 Total Bilirubin 0.4 AST 18 ALT 26 Alkaline Phosphatase 93 Troponin I 4 4 C-Reactive Protein Total Protein 7.2 Albumin 3.9 Triglycerides 39 Total Cholesterol 219 H LDL Cholesterol, Calc 138 H HDL Cholesterol 74 H TSH 2.09 11/24/24 06:23 WBC RBC Hgb Hct MCV MCH MCHC RDW Plt Count MPV Immature Gran % Neutrophils % Lymphocytes % Monocytes % Eosinophils % Basophils % Nucleated RBC % Absolute Neutrophils Absolute Lymphocytes Absolute Monocytes Absolute Eosinophils Absolute Basophils ESR 5 PT INR APTT Sodium Potassium Chloride Carbon Dioxide Anion Gap BUN Creatinine Est GFR (CKD-EPI 2020) Glucose Hemoglobin A1c Calcium Total Bilirubin AST ALT Alkaline Phosphatase Troponin I C-Reactive Protein < 0.50 Total Protein Albumin Triglycerides Total Cholesterol LDL Cholesterol, Calc HDL Cholesterol TSH
--- NOTE | 2024-11-24 11:18 | DSE_ITS ---
Date of service: 11/24/24 Time of Service: 11:18 DS: Diagnosis Discharge Diagnosis (1) TIA (transient ischemic attack): Status: Acute (2) Hypothyroidism: Status: Chronic Discharge Plan Disposition Patient Disposition: Home Condition: Improving Discharge Details Reason For Visit: TIA Admit Date/Time: 11/23/24 12:21 Admit Provider: Darrick Reynoso Attending Provider: Darrick Reynoso Primary Care Provider: Bethany Palmer Hospital Course Hospital Course: This 74-year-old female patient with past medical history of GERD, chronic rhinitis, psychophysiologic insomnia, hyperlipidemia, prediabetes presented to the emergency department on 11/23/2024 for word finding difficulty that occurred approximately 8 AM lasting for 10 minutes then resolving. The patient reported similar remote episode. She did report a headache at the time but is on sumatriptan at home, and vague uncharacteristic visual changes. Denied motor difficulty, numbness, tingling, abdominal pain nausea or vomiting. No recurrence of symptoms when she was evaluated in the ED. Her neurologic exam was unremarkable. Head CT showed no acute intracranial findings.ED provider and radiologist discussed patient with allergy to shellfish and the predicted delay in obtaining MRI. Status post discussion with patient the proceed to administer methylprednisolone and Benadryl prior to completing the CTA of the head and neck with patient agreement. No allergic reaction status post imaging. Head and neck CTA showed no significant stenosis, no dissection, no ring-enhancing lesions or any other acute findings. A1c was 5.9, total cholesterol at 219 LDL at 138 and HDL at 74. She was seen by tele-neurology with recommendations for admission here under observation to complete stroke workup. Hospitalist services has been contacted. Hemodynamically she has remained stable. No evid ence of an infection. An echocardiogram showed an LVEF of 60% without ventricular septal defect. MRI showed a few FLAIR of bright foci of periventricular signal abnormality, largest measuring 13 x 9 mm to the left parietal lobe with nonspecific appearance. No acute findings of hemorrhage surrounding edema restricted diffusion reported and no evidence of acute infarct. Report also mentioned ab normal meningeal enhancement. An MRI with was ordered but can only be completed on 11/26/2024. Patient refusing to stay in the hospital for the MRI with ordered for Tuesday11/26/2024 and would rather have it done outpatient. The patient will be discharged home with follow-up with primary care practitioner within 7 days of discharge. Prescription for ASA 81 mg and atorvastatin forwarded to the patient's pharmacy. Discussed with Dr. Reynoso [place] Meds and New Rx's Prescriptions: New aspirin [Children's Aspirin] 81 mg Tablet,Chewable 81 mg PO DAILY Qty: 30 0RF atorvastatin 40 mg Tablet 80 mg PO QPM Qty: 60 0RF Continued epinephrine 0.3 mg/0.3 mL auto-injector 0.3 mg IM ONCE Rx Instructions: as a single dose; may repeat once levothyroxine [Synthroid] 100 mcg tablet 100 mcg PO DAILY sumatriptan succinate 50 mg tablet See Rx Instructions PO .COMPLEX Rx Instructions: take 1 tab at onset of headache; if no relief may repeat 1 tab after at least 2 hrs; max = 4 tabs/24 hr PO magnesium gluconate 27 mg magnesium (500 mg) tablet 27 mg PO DAILY cholecalciferol (vitamin D3) 50 mcg (2,000 unit) capsule 50 mcg PO DAILY methocarbamol 750 mg tablet 750 - 1,500 mg PO Q8H omeprazole 40 mg capsule,delayed release(DR/EC) 40 mg PO DAILY azelastine 137 mcg (0.1 %) aerosol,spray 2 spray intranasal BID Rx Instructions: administer into each nostril acetaminophen 500 mg capsule 500 mg PO Q6H PRN azelaic acid 15 % gel 1 applic TOPICAL BID Discharge Instructions Referrals: Bethany Palmer [Primary Care Provider] - (Follow-up within 7 days of discharge) Activity:: Activity as Tolerated Equipment/Supplies:: No Equipment Needed Diet:: Heart healthy diabetic Discharge Orders Other Ambulatory Orders: MR angio brain w (Routine) Timeframe: 10 Day Facility: [facility] - Location: DIAGNOSTIC IMAGING Ordered By: Nicole Kramer DS: Summary Time Spent with Patient providing and/or coordinating discharge services: Greater than 30 minutes Status at Discharge Functional status at discharge: independent ambulation Overall status at discharge: patient is back to baseline Mental Status: mental status grossly normal Speech and Movement: speech and movement normal Mood: congruent mood and angry (Complained about Workup in the ED) Affect: normal affect Quality:SDOH Health Related Social Needs: Health related social needs inadequate housing (Z59.1) Exam Narrative Exam Narrative: 24-year-old female attending of stated age, no acute distress head is atraumatic eyes nonicteric,, noninjected EOMs are intact no nystagmus cranial nerves II through XII grossly intact, rvvmyo-rl-sier with no ataxia bilaterally, strength 5 out of 5 bilaterally upper and lower extremities , tele remained in a SR w/o ectopy, cardiovascular regular rate and rhythm, unlabored breathing with clear lungs, abdomen is nondistended soft nontender, no CVA tenderness Psych Mental Status: mental status grossly normal Speech and Movement: speech and movement normal Mood: congruent mood and angry (Complained about Workup in the ED) Affect: normal affect DS: Data Vitals/I&O Vitals and I&O: Vital Signs Temperature 36.8 C 11/24/24 08:07 Temperature Source Temporal Artery Scan 11/24/24 08:07 Pulse 67 11/24/24 08:07 Pulse Rhythm Regular 11/23/24 14:41 Pulse 70 11/23/24 12:40 Respiratory Rate 16 11/24/24 08:07 Respiratory Effort Normal 11/23/24 14:41 Respiratory Depth Normal 11/23/24 14:41 Respiratory Pattern Normal 11/23/24 14:41 Blood Pressure 152/70 H 11/24/24 08:07 Blood Pressure Mean 106 11/23/24 12:47 Blood Pressure Position Sitting 11/23/24 09:41 Pulse Oximetry 97 11/24/24 08:07 Oxygen Delivery Method Room Air 11/24/24 08:07 Oxygen Flow Rate 0 11/24/24 08:07 Pain Level 0 11/24/24 08:07 Comment RN Notified 11/23/24 19:35 Intake & Output 11/23/24 11/23/24 11/24/24 11:59 23:59 11:59 Intake Total 1200 / 1200 Output Total 1200 / 1200 1800 / 1800 Balance 0 / 0 -1800 / -1800 Weight 65.317 kg Intake: Oral 1200 / 1200 Output: Urine 1200 / 1200 1800 / 1800 Other: Urine Color Pale Yellow Yellow Urine Appearance Clear Clear Urine Odor None None Data Completed and Pending Labs on day of discharge: Labs from last 24 hours 11/24/24 11/23/24 11/23/24 06:23 10:54 10:51 ESR 5 Hemoglobin A1c Troponin I 4 C-Reactive Protein < 0.50 Triglycerides Total Cholesterol LDL Cholesterol, Calc HDL Cholesterol TSH 2.09 B. divergens/MO-1 PCR Pending Babesia duncani (PCR) Pending Babesia microti DNA PCR Pending Lyme Disease Antibody Pending E.chaffeensis DNA (PCR) Pending E.ewingii/canis DNA PCR Pending E.muris eauclairensis (PCR) Pending A. phagocytophilum (PCR) Pending Blood B. miyamotoi (PCR) Pending 11/23/24 09:54 ESR Hemoglobin A1c 5.9 H Troponin I C-Reactive Protein Triglycerides 39 Total Cholesterol 219 H LDL Cholesterol, Calc 138 H HDL Cholesterol 74 H TSH B. divergens/MO-1 PCR Babesia duncani (PCR) Babesia microti DNA PCR Lyme Disease Antibody E.chaffeensis DNA (PCR) E.ewingii/canis DNA PCR E.muris eauclairensis (PCR) A. phagocytophilum (PCR) Blood B. miyamotoi (PCR) PFSH All Active Problems (Updated 11/23/24 @ 15:55 by NORMA Agrawal) Transient ischemic attack (Acute) Hypothyroidism (Chronic) TIA (transient ischemic attack) (Acute) Cervical radiculitis (Acute) Osteoarthritis of left knee (Acute) Medical History ILENE (obstructive sleep apnea) Prediabetes Hyperlipidemia Psychophysiologic insomnia Dysphagia Hypothyroidism Osteoarthritis Mass of anterior abdominal wall Low back pain GERD (gastroesophageal reflux disease) Foot pain Osteopenia Abdominal pain Epigastric pain Disorder of soft tissue Cervical disc disorder with radiculopathy Neck pain Shoulder pain Vasomotor rhinitis Chronic rhinitis Social History Smoking/Tobacco Use Status: Never Smoking risk assessment performed?: Yes Alcohol Intake: never Drug use: Never Substance use type: does not use Housing: house Do you feel safe at home: Yes Do you feel safe in your relationship?: Yes Time Spent with Patient Time Spent with Patient: 70-84 minutes4 Time was spent: preparing to see the patient(eg.review tests), obtaining and/or reviewing separately otained hiistory, ordering medications,tests, procedures, referring, communicating with other health cna caregiver, indepentently interpreting results, counseling the patient and care coordination
[2024-11-24 11:30] VITALS: BP 120/58; PULSE 66; RESP 16; TEMP 36.8; O2SAT 96
--- NOTE | 2024-11-24 12:43 | PDOC.CMDIS ---
Date of service: 11/24/24 Time of Service: 12:43 LACE Index Scoring Tool Questions: Length of Stay (in days): 1 Was the patient admitted via the E.D.?: Yes Comorbidities: Cerebrovascular Disease (TIA) E.D. Visits: 1 Answers: Total Score: 6 Risk of Readmission: Low Risk Care Management Discharge Plan Reason for Hospitalization: TIA Discharge Plan: Stella is discharged home via private vehicle with family. Pt will follow up with her PCP and discharge plan of care as directed. PCP will follow outpatient imaging, also as directed. No new services are ordered prior to discharge. Patient/Family Education Needs: Review discharge instructions, limitations and plan to follow up after discharge. Discuss ask me three. SDOH Health Related Social Needs: Health related social needs inadequate housing (Z59.1)
[2024-11-26 10:22] LABS: Lyme Ab w Rflx to Lyme Confirm Negative (Negative)
[2024-11-28 00:51] LABS: Anaplasma phagocytophilum Negative (Negative); B. miyamotoi PCR Negative (Negative); Babesia divergens/MO-1 Negative (Negative); Babesia duncani Negative (Negative); Babesia microti Negative (Negative); Ehrlichia chaffeensis Negative (Negative); Ehrlichia ewingii/canis Negative (Negative); Ehrlichia muris eauclairensis Negative (Negative)
== END 2024-11-24 13:42 | disposition home or self-care (01) ==
LOC: ER 13:16 → MS 14:30
PROVIDERS: Family Medicine; Nurse Practitioner Acute Care; Admitting Provider Hospitalist; Emergency Provider Physician Assistant; PCP Family Medicine; Responsible Provider Nurse Practitioner Acute Care; Visit Provider Hospitalist
DX: G45.9 Transient cerebral ischemic attack, unspecified (principal); E03.9 Hypothyroidism, unspecified; M17.12 Unilateral primary osteoarthritis, left knee; G47.33 Obstructive sleep apnea (adult) (pediatric); R73.03 Prediabetes; E78.5 Hyperlipidemia, unspecified; R13.10 Dysphagia, unspecified; K21.9 Gastro-esophageal reflux disease without esophagitis; M50.10 Cervical disc disorder with radiculopathy, unspecified cervical region; Z79.899 Other long term (current) drug therapy
CPT/HCPCS: 00123; 36415; 36416; 70496; 70498; 80053; 80061; 82962; 85652; 87798; 93005; 93306; 96374; 96375; 99285; 70450; 70551; 83036; 84443; 84484; 85025; 85610; 85730; 86140; 86618; 93010; 93880; 99223; 99239; G0378; J1200; J2919; J3490

== ENCOUNTER 2024-11-29 01:11 | Outpatient (CLI) | payer MEDICARE, SELFPAY ==
--- NOTE | 2024-11-29 | DI.MRI_ITS ---
Exam(s) MR BRAIN W EXAM: MR BRAIN W CLINICAL HISTORY: G45.9,TRANSIENT CEREBRAL ISCHEMIA,FLAIR BRIGHT FOCI PERIVENTRICULAR SIGNAL TECHNIQUE: Multiplanar multisequence MRI of the brain was performed. Images from a postcontrast christofer dy are submitted for interpretation. IV Contrast injected was 13 cc Dotarem. COMPARISON: MR MR BRAIN WO from 11/23/2024 FINDINGS: CEREBRAL PARENCHYMA: No evidence of intracranial hemorrhage, mass effect nor shift of midline structu re. No extraaxial fluid collections. Ventricles are not enlarged nor shifted. With regards to the previously described nonspecific foci of white matter signal abnormality, these d o not exhibit evidence of hemorrhage, surrounding edema nor significant enhancement. DWI: It appears that a diffusion imaging sequence was not repeated at this time There are no ring enhancing lesions in the brain. There is no abnormal meningeal enhancement. PITUITARY GLAND: No mass nor parasellar abnormality. No obvious abnormality in the cavernous sinuses. FLOW VOIDS: No evidence of obvious aneurysm nor vascular malformation. PARANASAL SINUSES: The visualized paranasal sinuses appear unremarkable. ORBITS: No obvious abnormal findings. IMPRESSION: 1. There are no ring enhancing lesions in the brain nor abnormal meningeal enhancement. 2. There does not appear to be enhancement within the recently described multiple FLAIR bright foci o f signal abnormality in the white matter. Therefore these nonspecific findings are most probably rel ated to chronic small-vessel white matter ischemic disease changes. 3. Recommend repeat brain MRI in 6 months, earlier if clinically indicated DATA REPOSITORY:
[2024-11-29] MEDS: Normal Saline Flush 10 ML SYR IVP (15:08)
[2024-11-29] MEDS: Gadoterate meglumine 20 ML SYRINGE IVP (15:09)
== END 2024-11-29 01:31 ==
LOC: DI 01:12
PROVIDERS: PCP Family Medicine; Visit Provider Family Medicine
DX: G45.9 Transient cerebral ischemic attack, unspecified (principal)
CPT/HCPCS: 70552